=== PATIENT | male | born 1950 | race Caucasian/White ===

== ENCOUNTER → 2017-04-20 | Outpatient (CLI) | payer OTHER ==
[~2017-04-20] MED LIST: ALLOPURINOL100 MG PO; AMLODIPINE BESY10 MG PO; ASPIRIN E.C.81 M1 PO; Allopurinol PO; EPIPEN ADU0.3 MG/0.3 IM; FISH OIL 1,0001 EAC7 PO; FLOMAX0.4 MG PO; FLONASE16 GM NS; FLORINEF ACETA0.1 MG PO; FLUORIDE PO; Flomax PO; Flonase NS; KEPPRA500 MG PO; LIPITOR40 MG PO; MULTIVITAMIN1 EAC1 PO; Multivitamin PO; PREDNISONE20 MG PO; TRICOR145 MG PO; ZYLOPRIM100 MG PO
== END | disposition home or self-care (01) ==
LOC: CDC 10:06
DX: Z01.810 Encounter for preprocedural cardiovascular examination (principal); N40.0 Benign prostatic hyperplasia without lower urinary tract symptoms; R39.198 Other difficulties with micturition
CPT/HCPCS: 93000